=== PATIENT | female | born 1995 ===

== ENCOUNTER 2018-04-18 13:16 | Emergency (ER) | payer OTHER ==
[2018-04-18 13:30] VITALS: BP 94/60
--- NOTE | 2018-04-18 14:20 | UC ---
Abdominal Pain Female HPI - HPI Summary HPI Summary: YESTERDAY HAD BLOOD IN HER URINE. THIS MORNING NOTICED BLOODY STOOL. HAS HAD INTERMITTENT BLOODY STOOLS OVER THE PAST WEEK AND ANOTHER EPISODE OF HEMATURIA EARLIER IN THE WEEK WELL. COMPLAINS OF INTERMITTENT, SHARP LOWER ABDOMINAL PAIN THAT OCCURS AFTER EATING LUNCH BUT NOT BREAKFAST. LASTS ABOUT AN HOUR THEN RESOLVES SPONTANEOUSLY. REPORTS SHE OFTEN DOES NOT EAT DINNER. NO FEVER. NO NAUSEA. WAS SEEN AT [facility] YESTERDAY AND STARTED ON OMEPRAZOLE. SHE REPORTS SHE HAD SOME BLOOD DRAWN BUT NO RESULTS GIVEN. LMP ENDED ABOUT A WEEK AGO. HAS NOT HAD SEX SINCE THEN. - History of Current Complaint Chief Complaint: UCAbdominalPain Stated Complaint: BLOOD IN STOOL/URINE ABDOMINAL PAIN Time Seen by Provider: 04/18/18 13:25 Hx Obtained From: Patient Hx Last Menstrual Period: 04/10/18 Severity Initially: Moderate Severity Currently: Moderate Pain Intensity: 7 Pain Scale Used: 0-10 Numeric Location: Suprapubic Radiates: No Aggravating Factor(s): Food Alleviating Factor(s): Spontaneous Resolution Associated Signs and Symptoms: Positive: Blood in Stool, Urinary Symptoms. Negative: Fever, Cough, Chest Pain, Dizzy, Back Pain, Constipation, Nausea, Vomiting, Diarrhea Allergies/Adverse Reactions: Allergies Allergy/AdvReac Type Severity Reaction Status Date / Time No Known Allergies Allergy Verified 04/18/18 13:23 Home Medications: Home Medications Omeprazole 20 mg PO DAILY 04/18/18 [History Confirmed 04/18/18] PMH/Surg Hx/FS Hx/Imm Hx Previously Healthy: Yes - Surgical History Surgical History: None - Family History Known Family History: Negative: Hypertension - Social History Alcohol Use: None Substance Use Type: None Smoking Status (MU): Never Smoked Tobacco Review of Systems Constitutional: Negative Skin: Negative Respiratory: Negative Cardiovascular: Negative Gastrointestinal: Abdominal Pain, Other - BRBPR Genitourinary: Hematuria All Other Systems Reviewed And Are Negative: Yes Physical Exam Triage Information Reviewed: Yes Appearance: Well-Appearing, No Pain Distress, Well-Nourished Vital Signs: Initial Vital Signs Temp 98.2 F 04/18/18 13:25 Pulse 62 04/18/18 13:25 Resp 16 04/18/18 13:25 BP 94/60 04/18/18 13:25 Pulse Ox 100 04/18/18 13:25 Laboratory Tests 04/18/18 04/18/18 13:39 13:42 POC Urine Color Yellow POC Urine Clarity Clear POC Urine pH 7.0 POC Ur Specif Elysian 1.010 POC Urine Protein Negative POC Ur Glucose (UA) Negative POC Urine Ketones Negative POC Urine Blood Negative POC Urine Nitrite Negative POC Urine Bilirubin Negative POC Urine Urobilinogen 0.2 POC U Leukocyte Esteras Negative POC Ur Test Negative Vital Signs Reviewed: Yes Eyes: Positive: Conjunctiva Clear ENT: Positive: Hearing grossly normal Neck: Positive: Supple Respiratory Exam: Normal Cardiovascular Exam: Normal Abdomen Description: Positive: Soft, Other: - SUPRAPUBIC TENDERNESS. NO RIGIDITY. NO REBOUND. Negative: CVA Tenderness (R), CVA Tenderness (L), Distended, Guarding Bowel Sounds: Positive: Present Pelvic Exam: Positive: Bimanual Exam Normal, No Cerv. Motion Tender, Discharge - THIN WHITE D/C IN VAGINAL VAULT, Other - FLESHY OUTGROWTH AT INTROITUS JUST DISTAL TO URETHRAL MEATUS. TENDER. Negative: Active Bleeding, Blood Musculoskeletal: Positive: No Edema Neurological: Positive: Alert Psychological: Positive: Age Appropriate Behavior Skin: Negative: rashes UC Physical Exam Vital Signs On Initial Exam: Initial Vitals Temp Pulse Resp BP Pulse Ox 98.2 F 62 16 94/60 100 04/18/18 13:25 04/18/18 13:25 04/18/18 13:25 04/18/18 13:25 04/18/18 13:25 - Rectal Exam Rectal Exam: Normal Rectal Tone, Non-tender, Heme Positive Stool Diagnostics - Laboratory Diagnostic Studies Completed/Ordered: FOBT POSITIVE Abd Pain Female Course/Dx - Course Course Of Treatment: PT NOT ACUTE BUT CONCERNED ABOUT SX. DISCUSSED ED TRANSFER FOR STAT LAB AND IMAGING IF NEEDED VS OUTPT F/U NEXT WEEK. PT OPTS FOR OUTPT F/ U. ADVISED TO GO DIRECTLY TO ED IF SX WORSEN. - Differential Dx/Diagnosis Provider Diagnoses: 1. FOBT POSITIVE. 2. FLESHY GROWTH AT INTROITUS Discharge - Sign-Out/Discharge Documenting (check all that apply): Patient Departure - Discharge Plan Condition: Stable Disposition: HOME Patient Education Materials: Rectal Bleeding (ED), Abdominal Pain (ED) Referrals: [facility] [Provider Group] - If Needed [facility] [Provider Group] - 2 Days [facility] [Provider Group] - 2 Days Additional Instructions: BE SURE TO FOLLOW-UP WITH YOUR LAB RESULTS FROM [facility]. REQUEST A COPY SO YOU CAN BRING THE RESULTS TO YOUR FOLLOW-UP APPOINTMENTS WITH EVENT REPRESENTATIVE AND GI. CALL BOTH EVENT REPRESENTATIVE AND GI FRIDAY MORNING FOR FOLLOW-UP APPOINTMENTS. GO TO THE ED WITHOUT FAIL IF YOU DEVELOP WORSENING PAIN, FEVER, VOMITING, DIARRHEA, ISRA[place] BLOOD PER RECTUM OR ISRAEL BLOODY URINE. I WOULD RECOMMEND AVOIDING SEXUAL INTERCOURSE UNTIL YOUR EVALUATION HAS BEEN COMPLETED. SWABS DONE TODAY FOR VAGINITIS AND GONORRHEA/CHLAMYDIA. ON PHYSICAL EXAM YOU HAVE A FLESHY GROWTH AT THE OPENING OF YOUR URETHRA. THIS SEEMS TO BE CAUSING SOME OF YOUR DISCOMFORT. YOUR FECAL OCCULT BLOOD TEST WAS POSITIVE FOR BLOOD IN THE RECTUM. URINE TEST TODAY NORMAL. TEST NEGATIVE. [facility] [address] PHONE: [phone] [facility] Address: [facility] [place] [address] - Billing Disposition and Condition Condition: STABLE Disposition: Home
--- NOTE | 2018-04-20 19:56 | ED ---
Progress - Progress Note Progress Note: NURSING TO CALL AND INFORM PATIENT POSITIVE [facility] FOR FLAGYL 500MG PO BID X 7 DAYS SENT TO PHARMACY Discharge - Sign-Out/Discharge Documenting (check all that apply): Patient Departure - Discharge Plan Condition: Stable Disposition: HOME Prescriptions: metroNIDAZOLE [Flagyl 500 MG TAB] 500 mg PO BID #14 tab Patient Education Materials: Rectal Bleeding (ED), Abdominal Pain (ED), Bacterial Vaginosis (ED) Referrals: [facility] [Provider Group] - If Needed [facility] [Provider Group] - 2 Days [facility] [Provider Group] - 2 Days Additional Instructions: BE SURE TO FOLLOW-UP WITH YOUR LAB RESULTS FROM [facility]. REQUEST A COPY SO YOU CAN BRING THE RESULTS TO YOUR FOLLOW-UP APPOINTMENTS WITH [facility] AND GI. CALL BOTH [facility] AND GI Friday FOR FOLLOW-UP APPOINTMENTS. GO TO THE ED WITHOUT FAIL IF YOU DEVELOP WORSENING PAIN, FEVER, VOMITING, DIARRHEA, ISRA[place] BLOOD PER RECTUM OR ISRAEL BLOODY URINE. I WOULD RECOMMEND AVOIDING SEXUAL INTERCOURSE UNTIL YOUR EVALUATION HAS BEEN COMPLETED. SWABS DONE TODAY FOR VAGINITIS AND GONORRHEA/CHLAMYDIA. ON PHYSICAL EXAM YOU HAVE A FLESHY GROWTH AT THE OPENING OF YOUR URETHRA. THIS SEEMS TO BE CAUSING SOME OF YOUR DISCOMFORT. YOUR FECAL OCCULT BLOOD TEST WAS POSITIVE FOR BLOOD IN THE RECTUM. URINE TEST TODAY NORMAL. TEST NEGATIVE. [facility] [address] [facility] PHONE: [phone] [facility] Address: [facility] [place] [address] - Billing Disposition and Condition Condition: STABLE Disposition: Home
== END 2018-04-18 15:03 | disposition home or self-care (01) ==
LOC: UCEAST 13:16
DX: K92.1 Melena (principal); R31.9 Hematuria, unspecified; N89.8 Other specified noninflammatory disorders of vagina
CPT/HCPCS: 81003; 84702; 87480; 87491; 87510; 87591; 87661; 99202; G0463